=== PATIENT | male | born 1995 | race Caucasian/White ===

== ENCOUNTER 2017-06-17 08:06 | Inpatient (IN) | payer OTHER ==
[~2017-06-17] VITALS: Ht 180.3 cm; Wt 45.4 kg
[2017-06-17] MEDS ORDERED: ONDANSETRON 4 MG/2 ML VIAL IM PRN (11:00)
[2017-06-17] MEDS ORDERED: hydrALAZINE HCL 50 MG TABLET PO PRN (11:00)
[2017-06-17] MEDS ORDERED: LORAZEPAM 1 MG TABLET PO PRN ×3 (11:00→16:00)
[2017-06-17] MEDS ORDERED: LOPERAMIDE HCL 2 MG CAPSULE PO PRN ×2 (11:00)
[2017-06-17] MEDS ORDERED: MAGNESIUM HYDROXIDE 30 ML LIQUID UDC PO PRN (11:00)
[2017-06-17] MEDS ORDERED: IBUPROFEN 400 MG TABLET PO PRN (11:00)
[2017-06-17] MEDS ORDERED: ACETAMINOPHEN 325 MG TABLET PO PRN (11:00)
[2017-06-17] MEDS ORDERED: ONDANSETRON ODT 4 MG TAB.RAPDIS SL PRN (11:00)
[2017-06-17] MEDS ORDERED: MIRALAX 17 GM POWD.PACK PO PRN (11:00)
[2017-06-17] MEDS ORDERED: DICYCLOMINE HCL 20 MG TABLET PO PRN (11:00)
[2017-06-17] MEDS ORDERED: PANTOPRAZOLE SODIUM 40 MG TABLET.DR PO PRN (11:00)
[2017-06-17] MEDS ORDERED: HYDROXYZINE PAMOATE 25 MG CAPSULE PO PRN (11:00)
[2017-06-17] MEDS ORDERED: MAG HYDROX/AL HYDROX/SIMETH 30 ML LIQUID UDC PO PRN (11:00)
[2017-06-17] MEDS ORDERED: LORAZEPAM 2 MG/1 ML VIAL IM PRN (11:00)
[2017-06-17 11:02] VITALS: BP 127/60
--- NOTE | 2017-06-17 11:05 | NUR ---
PRE ADMISSION: PT IS IN INTAKE A/O X 4. HE PRESENTS WITH GUARDED AFFECT AND DEPRESSED MOOD. HE DENIES S/I AND H/I. HIS GAIT IS STEADY. HE REPORTS USING 30 MG OF VALIUM THIS AM AND 1/2 GRAM OF COCAINE LAST NIGHT (SNORTING). HE STATES HE USES VALIUM 1-2 X A WEEK AND 1/2 GRAM COCAINE DAILY. HE STATES HE DRINKS ALCOHOL INTERMITTENTLY (BINGES). HE STATES HE BROUGHT NO MEDS IN AND TAKES NONE AT HOME. WILL ASSESS ON UNIT.
[2017-06-17 11:58] LABS: BASOPHILS # (AUTO) 0.1 K/uL (0.0-8.0); BASOPHILS % (AUTO) 0.7 % (0.0-2.0); EOSINOPHILS # (AUTO) 0.1 K/uL (0.0-0.7); EOSINOPHILS % (AUTO) 1.5 % (0.0-7.0); HEMOGLOBIN 16.1 g/dL (12.5-16.3); LYMPHOCYTES # (AUTO) 3.4 K/uL (20.0-40.0); LYMPHOCYTES % (AUTO) 38.4 % (20.5-51.5); MEAN CORPUSCULAR HEMOGLOBIN 32.6 uug (23.8-33.4); MEAN CORPUSCULAR HGB CONC 35 g/dL (32.5-36.3); MEAN CORPUSCULAR VOLUME 93.4 fL (73.0-96.2); MONOCYTES # (AUTO) 0.9 K/uL (2.0-10.0); MONOCYTES % (AUTO) 9.7 % (0.0-11.0); NEUTROPHILS # (AUTO) 4.4 K/uL (1.8-8.9); NEUTROPHILS % (AUTO) 49.7 % (38.5-71.5); PLATELET COUNT (AUTO) 202 K/uL (152-348); RED BLOOD CELL COUNT(AUTO) 4.93 MIL/uL (4.06-5.63); WHITE BLOOD COUNT (AUTO) 8.9 K/uL (3.6-10.2)
[2017-06-17 12:16] LABS: ALANINE AMINOTRANSFERASE 32 U/L (16-63); ALKALINE PHOSPHATASE 143 U/L (50-136); ASPARTATE AMINOTRANSFERASE 23 U/L (15-37); BILIRUBIN,TOTAL 0.4 mg/dL (0.2-1.0); CARBON DIOXIDE 30 mmol/L (21-32); CHLORIDE 102 mmol/L (98-107); CREATININE 1.1 mg/dL (0.6-1.3); GLUCOSE 85 mg/dL (74-106); MAGNESIUM 1.8 mg/dL (1.8-2.4); POTASSIUM 3.4 mmol/L (3.5-5.1); TOTAL PROTEIN, SERUM 7.9 g/dL (6.4-8.2); UREA NITROGEN, BLOOD 18 mg/dL (7-18)
[2017-06-17 12:17] LABS: *AMPHETAMINE, URINE NEGATIVE (NEGATIVE); *BARBITURATE, URINE NEGATIVE (NEGATIVE); *CANNABINOID, URINE POSITIVE (NEGATIVE); *COCCAINE, URINE POSITIVE (NEGATIVE); *OPIATE, URINE NEGATIVE (NEGATIVE); *PHENCYCLIDINE SCREEN,URINE NEGATIVE (NEGATIVE)
[2017-06-17 12:19] LABS: ETHANOL < 3 MG/DL (0-0)
--- NOTE | 2017-06-17 12:31 | NUR ---
ADMISSION: PT IS A 22 YO MALE. HE IS A/O X 4. SKIN WARM ,DRY AND INTACT. HE IS VERY THIN AND STATES HE HAS LOST WEIGHT DUE TO HIS DRUG PROBLEM. HE REPORTS USING VALIUM 20-30 MG 2-3 X WEEKLY. LAST USED 30 MG THIS AM. HE IS MILDLY INTOXICATED AT THIS TIME.HE ALSO USES COCAINE 0.5 GM DAILY. HE REPORTS SMOKING POT A FEW TIMES WEEKLY AND ALSO BINGE DRINKS EVERY SO OFTEN ON UNSPECIFIED TYPES OF ALCOHOLIC BEVERAGES. HE STATES HE CANNOT STOP ON HIS OWN AND NEEDS HELP. HE REPORTS MULTIPLE ATTEMPTS AT TREATMENT OVER THE LAST COUPLE YEARS AND PUT TOGETHER 7 MONTHS CLEAN ABOUT 1.5 YEARS AGO. HE STATES HE STARTED HANGING AROUND THE WRONG PEOPLE AND THAT STARTED THE RELAPSE PROCESS. HE STATES DRUGS AND ALCOHOL ARE INTERFERING WITH SCHOOL AND HIS RELATIONSHIPS WITH FAMILY. HE IS A STUDENT AND LIVES WITH HIS GRANDFATHER.HE DENIES A SZ HISTORY. HE DENIES ALLERGIES. HE DENIES PMH.HE SMOKES 15-20 CIGARETTES DAILY.HE DENIES HAVING A PCP. HE STATES HE WANTS TO GO TO [facility] FROM HERE AND MAKE ANOTHER ATTEMPT AT STAYING ABSTINENT. ORIENTED PT TO STAFF AND UNIT. WILL PROVIDE SAFE AND SUPPORTIVE ENVIRONMENT.
[2017-06-17] MEDS ORDERED: NEOMY/BACITRAC/POLYMI OINT 28.35 GM TUBE TOP PRN (13:15)
[2017-06-17] MEDS ORDERED: HYDR-3895 PO (13:41)
[2017-06-17] MEDS ORDERED: PANT40TA2 PO (13:41)
[2017-06-17] MEDS ORDERED: DIPH50CA37 PO (13:41)
[2017-06-17] MEDS ORDERED: IBUP-1953 PO (13:41)
[2017-06-17] MEDS ORDERED: POTASSIUM CHLORIDE 10 MEQ TAB.PRT.SR PO ONE (14:00)
[2017-06-17 16:00] VITALS: BP 113/63
--- NOTE | 2017-06-17 18:43 | NUR ---
END OF SHIFT: NEWLY ADMITTED. PT HAS BEEN SLEEPING SINCE HE GOT HERE ON AND OFF IN BED. NO S/S OF W/D NOTED. 30 MEQ OF K ADMINISTERED ORDERED. ENCOURAGED INCREASED FLUIDS. WILL PASS SHIFT REPORT TO ONCOMING NIGHT NURSE.
--- NOTE | 2017-06-17 19:16 | NUR ---
START OF SHIFT NOTE Received endorsement from day shift nurse. Client was in room and a/o to person, place, time, and situation. Client presented with an anxious mood, preoccupied, mild sweats, and mild headache. Client denies s/i and h/i. Client received no PRN's during previous shift. CIWA unable to be assessed due to patient being asleep all previous shift. Call light is in within reach and bed in lowered position. Patient will continue to be monitored and needs met.
[2017-06-17 20:00] VITALS: BP 111/70
[2017-06-18] VITALS: BP 112/55
[2017-06-18] MEDS: diphenhydrAMINE 50 MG CAPSULE PO PRN ×2 (00:14→23:03)
--- NOTE | 2017-06-18 00:14 | NUR ---
PRN Benadryl 50mg given for sleep. Will reasses pt. in 1 hour.
--- NOTE | 2017-06-18 01:14 | NUR ---
Pt reassed after receiving Benadryl 50mg. Pt.'s eyes closed and breathing is unlabored and even.
[2017-06-18 04:00] VITALS: BP 101/57
--- NOTE | 2017-06-18 04:05 | NUR ---
CIWA deferred. Pt.'s eyes are closed and his breathing is unlabored and even.
--- NOTE | 2017-06-18 06:49 | NUR ---
END OF SHIFT NOTE Endorsed patient to oncoming nurse. Pt. is in his room and is a/o to person, place, time, and situation. Pt. continues to present with an anxious and depressed mood, preoccupied thoughts, and mild sweats. Pt is cooperative. Pt. was given PRN Benadryl 50mg @ 0014 for sleep and when reassessing @ 0114 Pt.s eyes were closed and breathing was even and unlabored. Pt.s fluid intake was 1125mL, voided 2 times, and had 0 bowel movements. Pt.s V/S remained stable throughout shift. Pt. slept 5 hours. Last CIWA 5 @ 0000. Call light is within reach and pt. will continue to be monitored.
[2017-06-18 08:00] VITALS: BP 96/60
[2017-06-18 08:06] LABS: HEPATITIS B SURFACE AG Negative (Negative)
--- NOTE | 2017-06-18 08:15 | NUR ---
START OF SHIFT: RECEIVED PT IN BED WITH EYES CLOSED. RESPIRATIONS EVEN AND UNLABORED. CALL ANAYA IN REACH. BED LOW AND LOCKED. WILL CONTINUE TO MONITOR AND PROVIDE SAFE AND SUPPORTIVE ENVIRONMENT.
[2017-06-18] MEDS ORDERED: TUBERCULIN,PURIF.PROT.DERIV. 5 TU/0.1 ML TEST ID ONE (09:00)
--- NOTE | 2017-06-18 10:08 | NUR ---
VICK DEFERRED. PT REFUSED PPD. PT STATES " I WANT TO SLEEP, I'M TIRED." WILL ALLOW PT TO SLEEP IN.
[2017-06-18 12:00] VITALS: BP 96/60
[2017-06-18 16:00] VITALS: BP 102/65
--- NOTE | 2017-06-18 19:02 | NUR ---
END OF SHIFT: PT SLEPT MOST OF MORNING. HE ATTENDED GROUPS AND INTERACTED WITH PEERS. NO TAPER ORDERED. HE HAD SOME MILD ANXIETY . NO PRNS GIVEN. LAST CIWA 5. WILL PASS SHIFT REPORT TO ONCOMING NIGHT NURSE. DISCHARGE PLANNING IN PROGRESS FOR 06/19 IN AM. WILL PASS SHIFT REPORT TO ONCOMING NIGHT NURSE.
--- NOTE | 2017-06-18 19:30 | NUR ---
START OF SHIFT Received 22 year old male patient admitted on 06/17/17 for Valium and Cocaine withdrawal. Pt is alert and oriented x4. Pt is reports anxiety, restlessness and irritability. Pt noted wtih flat affect and slumped posture. Per endorsement, pt did not receive a taper but had PRN medications available. Pt is scheduled to be DC tomorrow to [facility]. Last CIWA 5 at 12pm. Breathing is even and unlabored, safety measures in place. Will monitor.
[2017-06-18 20:04] VITALS: BP 113/73
--- NOTE | 2017-06-18 23:03 | NUR ---
PRN BENADRYL Pt complains of difficulty sleeping. PRN Benadryl administered as ordered. Safety measures in place. Will monitor effectiveness.
--- NOTE | 2017-06-19 | NUR ---
VITALS REFUSED, CIWA DEFERRED 0000 vitals refused. CIWA deferred d/t pt lying in bed with eyes closed and is asleep. Breathing is even and unlabored, safety measures in place. Will continue to monitor.
--- NOTE | 2017-06-19 00:03 | NUR ---
PRN REASSESSMENT PRN Benadryl effective. Pt lying in bed with eyes closed and is asleep. Breathing even and unlabored, safety measures in place. Will monitor.
--- NOTE | 2017-06-19 04:00 | NUR ---
VITALS REFUSED, CIWA DEFERRED 0400 vitals refused. CIWA deferred d/t pt lying in bed with eyes closed and is asleep. Breathing is even and unlabored, safety measures in place. Will continue to monitor.
--- NOTE | 2017-06-19 06:59 | NUR ---
END OF SHIFT Pt is a 22 year old male patient admitted on 06/17/17 for Valium and Cocaine withdrawal. Pt remains alert and oriented x4. He had complaints of anxiety, restlessness and irritability during the shift. He is scheduled to be DC today to [facility]. At 2303 he received PRN Benadryl. He slept a total of 6 hrs, Intake: 400mL, Void: x1, BM:x1, CIWA:5 at 2000. Breathing is even and unlabored, safety measures in place. Endorsed to AM shift.
--- NOTE | 2017-06-19 07:15 | NUR ---
START OF SHIFT : PATIENT IS A 22 YR OLD MALE ADMITTED TO [facility] ON 06/17/17 FOR A MEDICALLY SUPERVISED WITHDRAWAL FROM BENZODIAZEPINES AND COCAINE. PATIENT HAS BEEN ON PRN'S ONLY AND IS TO BE DISCHARGED TODAY TO " LOCATED WITHIN [facility] " PRN MEDS GIVEN ON PM SHIFT : BENADRYL. PATIENT SLEPT FOR 6 HOURS AND IS STILL ASLEEP AT THIS TIME, BREATHING EVEN AND UNLABORED. LAST CIWA 5. WILL CONTINUE TO FOLLOW MD DC PLAN.
[2017-06-19 08:00] VITALS: BP 109/64
--- NOTE | 2017-06-19 09:30 | NUR ---
DISCHARGE NOTE : PATIENT WAS ADMITTED TO [facility] ON 06/17/17 FOR A MEDICALLY SUPERVISED WITHDRAWAL FROM COCAINE AND BENZODIAZEPINES AND TODAY WAS DISCHARGED TO " [facility]" . VITAL SIGNS STABLE 109/64, HR 75, T 97.6 O2 100% RR17, LAST BM THIS AM. PATIENT HAS SIGNED AND DATED ALL DC PAPERWORK, ALL BELONGINGS AND PRESCRIPTIONS RETURNED TO PATIENT. PATIENT STATES NO SI/HI AT THIS TIME. LAST CIWA 5 @ 0900. PATIENT AMBULATED OFF THE UNIT AND WAS PICKED UP AT [facility] BY PRIVATE CAR " [facility] " FOR TRANSPORT TO "[facility]"
== END 2017-06-19 09:25 | DRG 895 ==
LOC: SRC 10:29
PROVIDERS: ADMIT Internal Medicine; ATTEND Internal Medicine
PROC: HZ2ZZZZ Detoxification Services for Substance Abuse Treatment (ICD-10-PCS; principal; 2017-06-17)
PROC: HZ41ZZZ Group Counseling for Substance Abuse Treatment, Behavioral (ICD-10-PCS; 2017-06-18)
DX: F13.230 Sedative, hypnotic or anxiolytic dependence with withdrawal, uncomplicated (principal); F14.20 Cocaine dependence, uncomplicated; E87.6 Hypokalemia; F10.10 Alcohol abuse, uncomplicated; F11.21 Opioid dependence, in remission; G47.00 Insomnia, unspecified; F41.9 Anxiety disorder, unspecified; F17.210 Nicotine dependence, cigarettes, uncomplicated; Z82.61 Family history of arthritis; Z81.4 Family history of other substance abuse and dependence; F32.9 Major depressive disorder, single episode, unspecified
CPT/HCPCS: 36415; 70030-TC; 80307; 83735; 85025; 86592; 86705; 86803; 87340; 87806; A4663; G0480; Q0163